=== PATIENT | female | born 1965 | race Caucasian/White ===

== ENCOUNTER 2021-01-07 10:49 | Outpatient (REF) | payer OTHER, SELFPAY ==
[2021-01-09 13:36] LABS: COVID-19 RT-PCR UVMMC Result Negative (Negative)
== END 2021-01-07 10:50 | disposition home or self-care (01) ==
LOC: NCHCN 10:49
PROVIDERS: PCP Neuromusculoskeletal Medicine & OMM; Visit Provider Nurse Practitioner Family
DX: Z20.822 Contact with and (suspected) exposure to COVID-19 (principal)
CPT/HCPCS: U0003